=== PATIENT | male | born 1985 | race Caucasian/White ===

== ENCOUNTER 2016-08-21 04:10 | Emergency (ER) | payer BC ==
[~2016-08-21] VITALS: Ht 177.8 cm; Wt 102.3 kg
[~2016-08-21 04:10] MED LIST: AMOXICILLIN 50500 MG PO; ATIVAN; CELEXA; CELEXA 20MG20 MG/TA1 PO; CEPHALEXIN500 M1 PO; CIPRO 500MG TA500 MG PO; EXCEDRIN BACK &1 TAB PO; INVEGA3 MG PO; KLONOPIN0.5 MG PO; NORVASC 10MG10 MG PO; PREDNISONE20 MG PO; PROZAC40 MG PO; TRAZODONE50 MG PO; VICODIN 5/5001 UDTAB PO; XANAX 0.5MG0.5 MG PO
[2016-08-21 04:13] VITALS: BP 128/75; PULSE 65; TEMP 97.7
[2016-08-21] MEDS ORDERED: NORCO 325 MG-51 TAB PO (04:50)
[2016-08-21] MEDS ORDERED: PEN-VEE K500 MG PO (04:50)
== END 2016-08-21 05:03 | disposition home or self-care (01) ==
LOC: COL.ER 04:10
DX: K04.7 Periapical abscess without sinus (principal); K08.89 Other specified disorders of teeth and supporting structures